=== PATIENT | female | born 1940 | race Two or more races ===

== ENCOUNTER 2022-08-04 23:54 | Emergency (ER) | payer OTHER ==
[~2022-08-04] VITALS: Ht 154.9 cm; Wt 70.3 kg
--- NOTE | 2022-08-04 23:57 | NUR ---
[id number] FROM HOME FOR DIZZINESS. PLACED IN BED, VITALS CHECKED.
--- NOTE | 2022-08-05 00:20 | NUR ---
EKG DONE AT BEDSIDE
--- NOTE | 2022-08-05 00:28 | NUR ---
20GA TO LEFT FOREARM ESTABLISHED; BLOOD WORK COLLECTED AND GIVEN TO DEBONING TEAM LEADER
[2022-08-05 00:48] LABS: CALCIUM, SERUM 8.9 mg/dL (8.5-10.1); CARBON DIOXIDE 31 mmol/L (21-32); CHLORIDE 104 mmol/L (98-107); CREATININE 2.1 mg/dL (0.6-1.3); GLUCOSE 141 mg/dL (74-106); POTASSIUM 4.5 mmol/L (3.5-5.1); SODIUM SERUM 143 mmol/L (136-145); UREA NITROGEN, BLOOD 65 mg/dL (7-18)
--- NOTE | 2022-08-05 00:50 | NUR ---
PT TAKEN TO CT W/ TECH
[2022-08-05 00:51] LABS: BASOPHILS % (AUTO) 0.5 % (0.0-2.0); EOSINOPHILS % (AUTO) 1.4 % (0.0-6.0); HEMATOCRIT 36 % (33-45); HEMOGLOBIN 11.5 g/dL (11.5-14.8); LYMPHOCYTES # (AUTO) 1.4 K/uL (0.8-4.8); LYMPHOCYTES % (AUTO) 19.3 % (20.0-44.0); MEAN CORPUSCULAR HGB CONC 32 g/dl (31.0-36.0); MEAN CORPUSCULAR VOLUME 90 fL (82-100); MONOCYTES # (AUTO) 0.4 K/uL (0.1-1.30); MONOCYTES % (AUTO) 6.2 % (2.0-12.0); NEUTROPHILS # (AUTO) 5.1 K/uL (1.8-8.9); NEUTROPHILS % (AUTO) 72.6 % (43.0-81.0); PLATELET COUNT (AUTO) 209 K/uL (150-450); RED BLOOD CELL COUNT(AUTO) 3.96 MIL/uL (4.0-5.2)
--- NOTE | 2022-08-05 01:00 | NUR ---
PT RETURNED FROM CT
--- NOTE | 2022-08-05 02:32 | NUR ---
WHEELED TO RESTROOM AND ASSISTED W/ TOILETING. TOLERATED WALKING A FEW STEPS WITHOUT DIZZINESS. VOIDED X1.
--- NOTE | 2022-08-05 03:16 | NUR ---
FLASH EPRP PAGED PER DR CRUZ
--- NOTE | 2022-08-05 04:29 | NUR ---
[facility] ETA 05:45
--- NOTE | 2022-08-05 04:57 | NUR ---
REPORT GIVEN TO STANISLAW AT [facility], MADE AWARE OF PATIENT'S SCIENCE TECHNICIANS AT [id number] FOR RETURN TO THEIR FACILITY
--- NOTE | 2022-08-05 06:17 | NUR ---
report given to elena rodas condemnation engineer for discharge back to facility
--- NOTE | 2022-08-05 06:40 | NUR ---
PATIENT DISCHARGED BACK TO [facility] VIA [facility]. AAOX4, TOLERATED WALKING 2 STEPS WITHOUT ASSISTANCE FROM ER [facility] TO TRANSPORT [facility]. NO C/O DIZZINESS UPON DISCHARGE. IN NAD. VSS.
[2022-08-05 06:43] VITALS: BP 159/57
== END 2022-08-05 06:35 | disposition home or self-care (01) ==
LOC: ER 23:56
DX: R42 Dizziness and giddiness (principal); R07.9 Chest pain, unspecified; N28.9 Disorder of kidney and ureter, unspecified; R00.1 Bradycardia, unspecified; Z88.5 Allergy status to narcotic agent; Z88.8 Allergy status to other drugs, medicaments and biological substances
CPT/HCPCS: 36415; 70450-TC; 71045-TC; 80048-TC; 83880; 84484-TC; 85025-TC

== ENCOUNTER 2022-11-16 21:07 | Emergency (ER) | payer OTHER, MEDICAID ==
[~2022-11-16] VITALS: Ht 167.6 cm; Wt 105.7 kg
[2022-11-16] MEDS ORDERED: DILTIAZEM HCL 50 MG IV IV ONE (21:30)
[2022-11-16 21:48] LABS: BASOPHILS % (AUTO) 0.5 % (0.0-2.0); EOSINOPHILS # (AUTO) 0.2 K/uL (0.0-0.7); EOSINOPHILS % (AUTO) 2.5 % (0.0-6.0); HEMATOCRIT 35 % (33-45); HEMOGLOBIN 11.2 g/dL (11.5-14.8); LYMPHOCYTES # (AUTO) 1.2 K/uL (0.8-4.8); MEAN CORPUSCULAR HEMOGLOBIN 29 PG (26.0-33.0); MEAN CORPUSCULAR HGB CONC 32 g/dl (31.0-36.0); MEAN CORPUSCULAR VOLUME 92 fL (82-100); MONOCYTES # (AUTO) 0.4 K/uL (0.1-1.30); MONOCYTES % (AUTO) 6.8 % (2.0-12.0); NEUTROPHILS # (AUTO) 4.7 K/uL (1.8-8.9); NEUTROPHILS % (AUTO) 71.2 % (43.0-81.0); PLATELET COUNT (AUTO) 188 K/uL (150-450); RED BLOOD CELL COUNT(AUTO) 3.84 MIL/uL (4.0-5.2); RED CELL DISTRIBUTION WIDTH 14.8 % (11.5-15.0); WHITE BLOOD COUNT (AUTO) 6.5 K/uL (4.3-11.0)
[2022-11-16] MEDS ORDERED: DILTIAZEM HCL 25 MG IV ONE (21:51)
[2022-11-16 22:14] LABS: INR 1.36 (0.91-1.10); PARTIAL THROMBOPLASTIN TIME 39.6 SEC (24.3-34.3)
[2022-11-16 22:18] LABS: CALCIUM, SERUM 8.9 mg/dL (8.5-10.1); CARBON DIOXIDE 28 mmol/L (21-32); CHLORIDE 104 mmol/L (98-107); CREATININE 1.9 mg/dL (0.6-1.3); GLUCOSE 172 mg/dL (74-106); SODIUM SERUM 141 mmol/L (136-145); UREA NITROGEN, BLOOD 57 mg/dL (7-18)
[2022-11-16 22:25] LABS: ALANINE AMINOTRANSFERASE 22 U/L (12-78); ALBUMIN 3.2 g/dL (3.4-5.0); ALKALINE PHOSPHATASE 78 U/L (46-116); ASPARTATE AMINOTRANSFERASE 15 U/L (15-37); BILIRUBIN,DIRECT 0.1 mg/dL (0.0-0.2); BILIRUBIN,TOTAL 0.2 mg/dL (0.2-1.0); TOTAL PROTEIN, SERUM 7.4 g/dL (6.4-8.2)
[2022-11-17] MEDS ORDERED: GABAPENTIN 300 MG CAPSULE ONE (00:05)
[2022-11-17] MEDS ORDERED: GABAPENTIN 100 MG CAPSULE PO ONE (00:30)
[2022-11-17 02:11] VITALS: BP 141/63; TEMP 98; O2SAT 97
== END 2022-11-17 02:13 | disposition short-term general hospital (02) ==
LOC: ER 21:09
DX: I48.20 Chronic atrial fibrillation, unspecified (principal); I13.0 Hypertensive heart and chronic kidney disease with heart failure and stage 1 through stage 4 chronic kidney disease, or unspecified chronic kidney disease; N18.9 Chronic kidney disease, unspecified; I50.9 Heart failure, unspecified; E11.22 Type 2 diabetes mellitus with diabetic chronic kidney disease; R07.89 Other chest pain; Z86.73 Personal history of transient ischemic attack (TIA), and cerebral infarction without residual deficits; Z88.5 Allergy status to narcotic agent; Z88.1 Allergy status to other antibiotic agents
CPT/HCPCS: 99291; 96374; 93005; 71045; 85025; 80048; 80076; 36415; 84484 ×2; 85730; J3490

== ENCOUNTER 2023-07-27 13:11 | Emergency (ER) | payer OTHER, MEDICAID ==
[~2023-07-27] VITALS: Ht 152.4 cm; Wt 72.6 kg
[~2023-07-27 13:11] MED LIST: CEPH500T PO
[2023-07-27 13:23] VITALS: TEMP 98
[2023-07-27 14:51] LABS: BASOPHILS # (AUTO) 0.1 K/uL (0.0-0.2); BASOPHILS % (AUTO) 0.8 % (0.0-2.0); EOSINOPHILS # (AUTO) 0.1 K/uL (0.0-0.7); EOSINOPHILS % (AUTO) 2.1 % (0.0-6.0); HEMATOCRIT 30 % (33-45); HEMOGLOBIN 9.6 g/dL (11.5-14.8); LYMPHOCYTES # (AUTO) 1.3 K/uL (0.8-4.8); LYMPHOCYTES % (AUTO) 18.2 % (20.0-44.0); MEAN CORPUSCULAR HEMOGLOBIN 29 PG (26.0-33.0); MEAN CORPUSCULAR HGB CONC 32 g/dl (31.0-36.0); MEAN CORPUSCULAR VOLUME 89 fL (82-100); MONOCYTES # (AUTO) 0.3 K/uL (0.1-1.30); MONOCYTES % (AUTO) 4.9 % (2.0-12.0); NEUTROPHILS # (AUTO) 5.1 K/uL (1.8-8.9); PLATELET COUNT (AUTO) 229 K/uL (150-450); RED BLOOD CELL COUNT(AUTO) 3.35 MIL/uL (4.0-5.2); RED CELL DISTRIBUTION WIDTH 15.7 % (11.5-15.0); WHITE BLOOD COUNT (AUTO) 6.9 K/uL (4.3-11.0)
[2023-07-27 15:07] LABS: INR 1.66 (0.91-1.10); PARTIAL THROMBOPLASTIN TIME 52.3 SEC (24.3-34.3); PROTHROMBIN TIME 16.7 SECS (9.2-11.1)
[2023-07-27 15:11] LABS: CALCIUM, SERUM 8.3 mg/dL (8.5-10.1); CARBON DIOXIDE 25 mmol/L (21-32); CHLORIDE 101 mmol/L (98-107); CREATININE 2.4 mg/dL (0.6-1.3); GLUCOSE 105 mg/dL (74-106); POTASSIUM 5.2 mmol/L (3.5-5.1); SODIUM SERUM 135 mmol/L (136-145)
[2023-07-27 15:22] LABS: UREA NITROGEN, BLOOD 92 mg/dL (7-18)
[2023-07-27 15:25] LABS: ALANINE AMINOTRANSFERASE 27 U/L (12-78); ALBUMIN 3.1 g/dL (3.4-5.0); ALKALINE PHOSPHATASE 80 U/L (46-116); ASPARTATE AMINOTRANSFERASE 24 U/L (15-37); BILIRUBIN,DIRECT 0.1 mg/dL (0.0-0.2); BILIRUBIN,TOTAL 0.3 mg/dL (0.2-1.0); NT-PRO BNP 2474 pg/mL (0-125); TOTAL PROTEIN, SERUM 7.8 g/dL (6.4-8.2)
[2023-07-27] MEDS: IV NS 0.9% 500 ML BAG IV ONE (15:30)
[2023-07-27 15:34] LABS: THYROID STIMULATING HORMONE 2.055 uIU/mL (0.358-3.74)
[2023-07-27 16:02] LABS: MAGNESIUM 2.6 mg/dL (1.8-2.4)
[2023-07-27 17:21] LABS: APPEARANCE,URINE Clear (CLEAR); BILIRUBIN,URINE Negative (NEGATIVE); BLOOD, URINE Trace-lysed Ery/uL (NEGATIVE); COLOR,URINE YELLOW (YELLOW); KETONES,URINE Negative (NEGATIVE); LEUKOCYTE ESTERASE ,URINE Negative (NEGATIVE); NITRITE, URINE Negative (NEGATIVE); PH,URINE 5.5 (5.0-8.0); PROTEIN,URINE Negative (NEGATIVE); UGLUCOSE Negative (NEGATIVE); UROBILINOGEN,URINE 0.2 EU/dL (0.2)
[2023-07-27 19:16] VITALS: BP 157/57; O2SAT 95
== END 2023-07-27 19:21 | disposition short-term general hospital (02) ==
LOC: ER 13:15
DX: I49.5 Sick sinus syndrome (principal); I13.0 Hypertensive heart and chronic kidney disease with heart failure and stage 1 through stage 4 chronic kidney disease, or unspecified chronic kidney disease; E11.22 Type 2 diabetes mellitus with diabetic chronic kidney disease; N18.9 Chronic kidney disease, unspecified; I50.9 Heart failure, unspecified; R42 Dizziness and giddiness; M81.0 Age-related osteoporosis without current pathological fracture; Z88.8 Allergy status to other drugs, medicaments and biological substances
CPT/HCPCS: 99291; 93005 ×2; 71045; 85025; 80048; 80076; 83735; 81003; 36415; 84443; 84484; 85730; 83880; J7040